=== PATIENT | male | born 1960 | race Caucasian/White ===

== ENCOUNTER 2020-04-30 13:53 | Outpatient (CLI) | payer OTHER ==
--- NOTE | 2020-04-30 14:51 | MRI ---
EXAM: LEFT ELBOW MRI WITHOUT IV CONTRAST: 04/30/20 HISTORY: Traumatic partial tear left biceps tendon. FINDINGS: there is an irregular full thickness insertional tear of the biceps tendon with some partial retracti on. The lacertus fibrosus is intact but shows mild sprain. Abnormal linear interstitial signal noted within the common extensor tendon insertion evidence for minimal interstitial tearing and tendinopath y. Ulnar collateral ligament appears intact as does the lateral collateral ligament complex. No evide nce for acute osteochondral defect or acute abnormal marrow edema. There is fluid in the radial bicip ital bursa. IMPRESSION: Evidence for an irregular full thickness minimally retracted tear of the distal bicipital tendon with fluid within the radial bicipital bursa with an intact lacertus fibrosus with minimal sprain. Abnormal signal associated with the common extensor tendon insertion interstitial region evidence for some interstitial tearing or tendinopathy. POS: RRE
== END 2020-04-30 13:54 | disposition home or self-care (01) ==
LOC: TBSIIMAG 13:53
PROVIDERS: ATTEND Orthopaedic Surgery
DX: S46.212A Strain of muscle, fascia and tendon of other parts of biceps, left arm, initial encounter (principal); M25.412 Effusion, left shoulder

== ENCOUNTER 2020-05-07 06:39 | Outpatient (CLI) | payer OTHER ==
[2020-05-07 16:15] LABS: #Eosinphils 0.2 thou/uL (0.0-0.7); #Lymphocytes 2.4 thou/uL (1.20-3.40); #Monocytes 0.6 thou/uL (0.11-0.59); %Basophils 0.5 % (0.0-1.0); %Eosinophils 2.8 % (0.0-10.0); %Lymphocytes 28.7 % (21.0-51.0); %Monocytes 6.7 % (0.0-10.0); %Neutrophils 61.2 % (42.0-75.0); Hemoglobin 16.3 g/dL (14.0-18.0); Mean Corpuscular HGB CONC 33.2 g/dL (32.0-36.0); Mean Corpuscular Hemoglobin 30.4 pg (27.0-31.0); Mean Corpuscular Volume 91.6 fL (78.0-98.0); Mean Platelet Volume 10.2 fL (7.4-10.4); Platelet Count 262 thou/uL (130-400); RBC Distribution Width 11.4 % (11.5-14.5); Red Blood Cell (RBC) Count 5.34 mill/uL (4.70-6.10); White Blood Cell (WBC) Count 8.2 thou/uL (4.8-10.8)
[2020-05-07 18:20] LABS: Anion Gap 13 mmol/L (10-20); BUN (Urea Nitrogen) 17 mg/dL (8.4-25.7); Calc. Creatinine Clearance 0 mL/min (70-130); Calcium 9.6 mg/dL (7.8-10.44); Carbon Dioxide 28 mmol/L (22-29); Chloride 98 mmol/L (98-107); Estimated GFR-MDRD 70; Glucose 329 mg/dL (70-105); Potassium 4.2 mmol/L (3.5-5.1); Sodium 135 mmol/L (136-145)
[2020-05-08 14:13] LABS: SARS-CoV-2 MS2 Positive; SARS-CoV-2 N Gene Negative; SARS-CoV-2 S Gene Negative; SARS-CoV-2 orf1ab Negative
== END 2020-05-07 06:40 | disposition home or self-care (01) ==
LOC: LABBT 06:39
PROVIDERS: ATTEND Orthopaedic Surgery
DX: Z01.818 Encounter for other preprocedural examination (principal); Z11.59 Encounter for screening for other viral diseases; S46.212A Strain of muscle, fascia and tendon of other parts of biceps, left arm, initial encounter
CPT/HCPCS: 80048; 85025; 87635; 93005; 93010; U0003

== ENCOUNTER 2020-05-10 06:03 | Day surgery (SDC) | payer OTHER ==
[2020-05-06 08:15] VITALS: BMI 27.9
[2020-05-10] MEDS ORDERED: Midazolam HCl 2 mg/2 ml Vial ONE (06:31)
[2020-05-10] MEDS ORDERED: Fentanyl 100 MCG/2 ML VIAL ONE ×2 (06:31→07:35)
[2020-05-10] MEDS ORDERED: Bupivacaine HCl 0.5%/Epinephrine 1:200,000/PF 30 ml Vial ONE ×2 (06:44→10:23)
[2020-05-10] MEDS ORDERED: Bupivacaine/Epinephrine 0.25% 30 ML VIAL ONE (06:44)
[2020-05-10] MEDS ORDERED: Lidocaine 1% (PF) 30 ML VIAL ONE (06:46)
--- NOTE | 2020-05-10 10:16 | OP ---
DATE OF PROCEDURE: 05/10/2020 TITLE OF PROCEDURE: Repair of left distal biceps tendon. PREOPERATIVE DIAGNOSIS: Left distal biceps rupture. POSTOPERATIVE DIAGNOSIS: Left distal biceps rupture. MANAGER DRIVE: Rene Meier PA-C BLOOD LOSS: Minimal. SPECIMEN: None. DRAINS: None. COMPLICATIONS: None. DESCRIPTION OF PROCEDURE: The patient was taken to the operating room where general anesthesia was induced. Left arm was prepped and draped in sterile fashion. After exsanguination, tourniquet was inflated to 250 mmHg. I made an oblique incision over the distal to the antecubital fossa. Dissection was carried down to the biceps tendon. I dissected the biceps tendon. This was about a 6-week-old scar, had dissected free from scar. This was somewhat difficult to do. I identified the proximal radius and radial tubercle and cleaned this with a periosteal elevator. I prepared the distal biceps by removing scar tissue from the periphery of the tendon. Using a FiberWire Krackow type stitch, running whipstitch, for about 1 inch of the distal portion tendon. I mobilized the tendon to make sure of a good mobility. I then drilled a pin through the humerus, drilled an 8 mm proximal tunnel, 4.5 mm distal hole and then placed Arthrex button through the distal hole and delivered the tendon down into the radius, so the suture back to itself and tied with about 6 ties, leaving a long tail. Tourniquet was released. Irrigation was performed. Hemostasis was obtained. Subcutaneous tissue was closed with 2-0 Vicryl. Skin was closed with fredy. Sterile dressings applied. Job ID: [id number]
[2020-05-10] MEDS ORDERED: PROPOFOL 200 MG/20 ML VIAL ONE (10:23)
[2020-05-10] MEDS ORDERED: Lidocaine 1% PF 5 ML VIAL ONE (10:23)
== END 2020-05-10 10:50 | disposition home or self-care (01) ==
LOC: SDC 06:03
PROVIDERS: ATTEND Orthopaedic Surgery
PROC: 0LM40ZZ Reattachment of Left Upper Arm Tendon, Open Approach (ICD-10-PCS; principal; 2020-05-10)
DX: S46.212A Strain of muscle, fascia and tendon of other parts of biceps, left arm, initial encounter (principal); I10 Essential (primary) hypertension; K21.9 Gastro-esophageal reflux disease without esophagitis; E11.9 Type 2 diabetes mellitus without complications; Z79.4 Long term (current) use of insulin; Z79.899 Other long term (current) drug therapy; Z88.1 Allergy status to other antibiotic agents; X50.0XXA Overexertion from strenuous movement or load, initial encounter
CPT/HCPCS: 36416; C1713; J0670; J0690; J2001; J2250; J2704; J3010